=== PATIENT | male | born 1980 | race Caucasian/White ===

== ENCOUNTER 2021-02-21 13:22 | Emergency (ER) | payer OTHER ==
[~2021-02-21] VITALS: Ht 177.8 cm; Wt 84.0 kg
[2021-02-21] MEDS ORDERED: TETANUS AND DIPHTHERIA TOX/PF 0.5ML SYR (ADULT) IM ONE (16:30)
[2021-02-21] MEDS ORDERED: CEFAZOLIN 1000MG PREMIX 50 ML IV ONE (16:30)
[2021-02-21 16:48] LABS: BASOPHILS % 0.4 % (0.0-2.0); EOSINOPHILS % 0.4 % (0.0-5.0); HEMATOCRIT. 46.7 % (42.0-52.0); MEAN CORPUSCULAR VOLUME 90.7 fL (80.0-94.0); MEAN PLATELET VOLUME 8.8 fl (7.4-10.4); MONOCYTES % 7.3 % (2.0-8.0); NEUTROPHILS % 82.9 % (40.0-76.0); PLATELET 218 x1000/uL (130-400); RED BLOOD CELL COUNT 5.15 mill/uL (4.7-6.1); RED CELL DISTRIBUTION WIDTH 14.6 % (11.6-14.6)
[2021-02-21 16:51] LABS: CHLORIDE 105 mEq/L (98-107)
[2021-02-21] MEDS ORDERED: TETANUS, DIPHTHERIA, PERTUSSIS VAC/PF 0.5ML (>10YR OLD) IM ONE (17:00)
[2021-02-21 17:15] LABS: INR 0.9; PROTHROMBIN TIME 10.1 sec (9.6-11.0)
[2021-02-21 18:00] VITALS: BP 141/89
== END 2021-02-21 18:00 | disposition left against medical advice (07) ==
LOC: ER 13:22
DX: S62.601B Fracture of unspecified phalanx of left index finger, initial encounter for open fracture (principal); M79.645 Pain in left finger(s); X58.XXXA Exposure to other specified factors, initial encounter; Y93.89 Activity, other specified; Y92.89 Other specified places as the place of occurrence of the external cause; Y99.8 Other external cause status
CPT/HCPCS: 36415; 73130; 80053; 85025; 85610; 90471; 90714; 90715; 96365; 99284; J0690; Z7610